=== PATIENT | male | born 1960 | race Caucasian/White ===

== ENCOUNTER → 2016-08-08 | Outpatient (CLI) | payer OTHER ==
[~2016-08-08] MED LIST: ASPI-482 PO; ATEN50TA PO; CEVI30CA5 PO; EFIN4SOL TP; IBUP1TAB84 PO; LORA10TA3 PO; OMEP20CA9 PO; SIMV20TA3 PO; VENTOLIN HFA18 GM IH
--- NOTE | 2016-08-08 16:20 | KCIC ---
CT ABDOMEN PELVIS WO CONTRAST Indication: . Pancreas nodule. Liver cysts. Elevated lipase. Comparison: October 08, 2015. Contrast: No intravenous or oral contrast per request. Exposure: One or more of the following individualized dose reduction techniques were utilized for this examination: 1. Automated exposure control 2. Adjustment of the mA and/or kV according to patient size 3. Use of iterative reconstruction technique. Findings: Lung bases clear No evidence of pneumoperitoneum Fat-containing umbilical hernia is noted. Evaluation of solid viscera, bowel and vasculature is compromised by the noncontrast technique. Multiple small low-density lesions of the liver are noted. These are similar in size and appearance. The largest measures 2 cm and measures water density compatible with cyst. Other lesions are too small to characterize but appears stable. No significant change in the appearance of the pancreas, or evidence of acute abnormality Spleen unremarkable. No adrenal mass. Kidneys appear unremarkable. No calcified gallstone. No aortic aneurysm. No significant lymph node enlargement. No bowel obstruction. Mild colonic diverticulosis. No evidence of pericolonic inflammatory-type change. The appendix is not clearly visualized. No significant ascites. The urinary bladder is mildly distended and obscured by metal artifact. Right hip replacement again identified. 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 There is asymmetry of the acetabular cup lucency. Degenerative changes of the spine, particularly at the lumbosacral junction are again identified. IMPRESSION: 1. Multiple liver lesions appear similar, most compatible with cysts. 2. No significant change or acute abnormality of the pancreas. 3. 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 There is slight asymmetry in positioning of the femoral head within the acetabular cup suggesting polyethylene wear. Electronically signed by: Ubaldo De La Paz MD (08/08/2016 4:17 PM)
== END | disposition home or self-care (01) ==
LOC: KCIC CT 14:17
PROVIDERS: ATTEND Physician Assistant
DX: K76.9 Liver disease, unspecified (principal)
CPT/HCPCS: 74176

== ENCOUNTER → 2017-01-30 | Outpatient (CLI) | payer OTHER ==
--- NOTE | 2017-01-30 09:29 | KCIC ---
ABDOMEN LTD Clinical Indication: Umbilical hernia. Tender to touch. Comparison: CT abdomen and pelvis without contrast 04/10/2016. TECHNIQUE: Real-time ultrasound imaging of the ventral abdominal wall near the umbilicus is performed. Findings: There is a fat-containing umbilical hernia. Hernia measures on the order of 3.4 cm. The neck of the hernia measures about 2.6 cm. Size is similar to prior study. IMPRESSION: Fat-containing umbilical hernia. Electronically signed by: Ian Delong MD (01/30/2017 9:26 AM) [id number]
== END | disposition home or self-care (01) ==
LOC: KCIC US 07:52
PROVIDERS: ATTEND Nurse Practitioner Family
DX: K42.9 Umbilical hernia without obstruction or gangrene (principal)
CPT/HCPCS: 76705

== ENCOUNTER → 2017-11-28 | Outpatient (CLI) | payer OTHER ==
[~2017-11-28] MED LIST changes: +IOHEXOL 240 MG/ML 50ML VIAL. PO ONE; +IOHEXOL 300 MG/ML 100ML VIAL. IV ONE
--- NOTE | 2017-11-28 13:23 | KCIC ---
Examination: CT abdomen without and with IV contrast using multiphasic CT liver protocol HISTORY: History of abnormal liver function test COMPARISON: 08/08/2016 TECHNIQUE: Axial CT images of the abdomen was performed without and with IV contrast using CT multiphase liver protocol. Coronal and sagittal reformats are performed Exposure: One or more of the following individualized dose reduction techniques were utilized for this examination: 1. Automated exposure control 2. Adjustment of the mA and/or kV according to patient size 3. Use of iterative reconstruction technique FINDINGS: The visualized bibasilar lungs are clear. No evidence of free air identified in the abdomen. There are multiple cystic structures identified in the liver with the largest measuring 2.2 cm which does not demonstrate significant enhancement likely cysts grossly similar to prior exam. The stomach is minimally distended. The visualized pancreas grossly appears unremarkable the gallbladder is mildly distended. The bilateral kidneys enhance symmetrically. Minimal fat stranding identified about the bilateral kidneys similar to prior exam left greater than right. No evidence of lytic bony destructive lesion. Partially visualized fat-containing complex hernia identified measuring 4.1 cm with the neck of the hernia measuring 1.9 cm in transverse dimension. IMPRESSION: 1. Multiple cystic structures identified in the liver with the largest measuring 2.2 cm likely cysts. 2. Minimal fat stranding identified about the bilateral kidneys, nonspecific probably due to medical renal disease. 3. Partially visualized fat-containing umbilical hernia. Electronically signed by: Chavo Morton MD (11/28/2017 1:20 PM) [id number]
== END | disposition home or self-care (01) ==
LOC: KCIC CT 09:27
PROVIDERS: ATTEND Family Medicine
DX: K42.9 Umbilical hernia without obstruction or gangrene (principal); K76.89 Other specified diseases of liver; K31.89 Other diseases of stomach and duodenum; I10 Essential (primary) hypertension; Z87.891 Personal history of nicotine dependence; Z79.01 Long term (current) use of anticoagulants
CPT/HCPCS: 74170; Q9966; Q9967